=== PATIENT | male | born 1980 | race Caucasian/White ===

== ENCOUNTER 2022-09-20 19:22 | Emergency (ER) | payer BC, SELFPAY ==
--- NOTE | 2022-09-20 19:23 | XRR_ITS ---
PROCEDURE INFORMATION: Exam: XR Left Knee Exam date and time: 09/20/2022 7:30 PM Age: 42 years old Clinical indication: Injury or trauma; Fall; Swelling (edema); Knee; Left TECHNIQUE: Imaging protocol: Radiologic exam of the Left knee. Views: 3 views. COMPARISON: No relevant prior studies available. FINDINGS: Bones/joints: No acute fracture or dislocation is noted. The skeletal structures seem age-appropriate. Soft tissues: Minute effusion possible. XR/XR knee LT 3V* [id number] IMPRESSION: No acute findings.
[2022-09-20 19:29] VITALS: BP 161/94; PULSE 111; RESP 18; TEMP 36.7; O2SAT 100; BMI 40.6
--- NOTE | 2022-09-20 20:16 | ED_ITS ---
HPI - Extremity Problem General: Chief complaint: Extremity Injury, Lower Stated complaint: Left knee injury Time Seen by Provider: 09/20/22 19:38 History of Present Illness: Patient is in for left knee pain. 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 He reports that his knee was a little bit sore after that but and he was still able to work and walk. He reports that today he was pushing a large pallet of dog food and his knee buckled. He grabbed the palate before he actually fell to the ground. He reports it is painful to walk on it all now. He does offer that he has chronic swelling to his lower left extremity from lymphedema. Associated symptoms: Deny fever(s) Review of Systems Const: Denies: fever(s), chills or body aches Musc: Reports: other (Left knee pain) Physical Exam Const: COMMON NORMALS: no acute distress, patient oriented x3 and alert Extremity: NARRATIVE EXTREMITY EXAM: Patient has moderate swelling to the entire left lower extremity knee down which she reports is chronic from lymphedema. Patient is tender to palpation anterior knee left side as well as the medial and lateral collateral ligaments of the left knee. There is no obvious bony deformity appreciated. Patient is able to flex and extend the knee. He does walk with a limp. Neuro: COMMON NORMALS: patient oriented x3 SENSORIUM/ORIENTATION: Yes alert Course Vital Signs: Vital signs: Vital Signs Temperature 98.1 F 09/20/22 19:29 Pulse Rate 111 H 09/20/22 19:29 Respiratory Rate 18 09/20/22 19:29 Blood Pressure 161/94 09/20/22 19:29 Pulse Oximetry 100 09/20/22 19:29 Oxygen Delivery Me thod 09/20/22 19:29 MDM - Extremity (Nontraumatic) Medical Decision Making Considered knee sprain versus fracture versus internal derangement X-ray does not show any acute findings We will treat patient conservatively. Shay wrap and crutches provided. Advised patient to elevate, ice, rest the extremity. Follow-up with primary care provider in 1 week if symptoms persist. Return to the ER as needed for new or worsening symptoms Lab Data Radiology Impressions Knee X-Ray 09/20/22 19:23 IMPRESSION: No acute findings. Discharge Plan Discharge Patient Disposition: Home Clinical Impression: Injury of knee, left Qualifiers: Encounter type: initial encounter Qualified Code(s): S89.92XA - Unspecified injury of left lower leg, initial encounter Condition: Stable Discharge Orders: Discharge ED (Routine); Ordered 09/20/22 Ordered By: Erin Meyers Discharge Diet: Usual diet Discharge Activity: Limit activity as instructed Patient Instructions: Knee Pain (ED) Activity Restrictions/Additional Instructions: Rest, ice, elevate the extremity. Use the crutches for the next 3 to 4 days then slowly advance weightbearing as tolerated. Follow-up with primary care provider in 1 to 2 weeks for persisting symptoms. Return to the ER as needed for new or worsening symptoms Stand Alone Forms: Work/School Release Coding Level of Care Code ED Sales Enablement Analyst for Romina Brito
[2022-09-20] MEDS: ketorolac 60 mg/2 mL INJ IM (20:24)
== END 2022-09-20 20:28 | disposition home or self-care (01) ==
PROVIDERS: Emergency Provider Nurse Practitioner Family
DX: S89.92XA Unspecified injury of left lower leg, initial encounter (principal); W01.0XXA Fall on same level from slipping, tripping and stumbling without subsequent striking against object, initial encounter
CPT/HCPCS: 73562; 96372; 99284; E0114; J1885